=== PATIENT | male | born 1955 | race African-American/Black ===

== ENCOUNTER 2017-07-03 13:25 | Emergency (ER) | payer MEDICARE, OTHER ==
--- NOTE | 2017-07-03 14:14 | ED Physician Documentation ---
General Adult - HISTORIAN Historian: patient, other (Bridger ) - HPI Stated Complaint: BLE neuropathy pain Chief Complaint: Low Back Pain/ Injury Onset: other (years with neuropathy htn ) Timing: other (he has not had his meds since incarceration ) Severity: other (worse pain without meds ) Modifying Factors: none Context: none Quality: burning and painful Location: lower legs - left worse Further Comments: yes Last known Well Date: 06/24/17 Last Known Well Time: 09:00 Last known Well Code/Unknown Code: Unknown - ROS CONST: no problems EYES/ENT: none GI/: none MS/SKIN/LYMPH: none NEURO/PSYCH: denies: headache, fainting, dizziness - PAST HX Past History: other (htn, CHF, neuropathy ) Surgeries/Procedures: other (RTK, olivia, back and neck surgery, bilateral shoulder surgery ) Immunizations: referred to PCP - SOCIAL HX Smoking History: cigarettes Alcohol Use: none Drug Use: none - FAMILY HX Family History: Yes - VITAL SIGNS Vital Signs: Vital Signs Temp Pulse Resp BP Pulse Ox 98.2 F 95 H 26 H 169/71 100 07/03/17 13:38 07/03/17 13:38 07/03/17 13:38 07/03/17 13:38 07/03/17 13:38 - REVIEWED ASSESSMENTS Nursing Assessment Reviewed: Yes Vitals Reviewed: Yes <Tiffany Handy - Last Filed: 07/03/17 14:20> - VITAL SIGNS Vital Signs: Vital Signs Temp Pulse Resp BP Pulse Ox 98.2 F 72 22 153/59 98 07/03/17 14:24 07/03/17 14:24 07/03/17 14:24 07/03/17 14:24 07/03/17 14:24 <Lamine Christopher - Last Filed: 07/03/17 15:18> - PAST HX Allergies/Adverse Reactions: Allergies Allergy/AdvReac Type Severity Reaction Status Date / Time No Known Drug Allergies Allergy Verified 07/03/17 14:00 Home Medications: Ambulatory Orders Medication Instructions Recorded QUEtiapine FUMARATE [Seroquel] 100 mg PO HS u2 06/29/13 Tamsulosin HCl [Flomax] 0.4 mg PO DAILY av 06/29/13 Testosterone Cypionate 200 mg IM q 2 weeks 06/29/13 Amitriptyline HCl 50 mg PO HS #4 tablet 07/03/17 Amitriptyline HCl [Amitriptyline 50 mg PO HS 07/03/17 HCl] Baclofen [Baclofen] 20 mg PO QID 07/03/17 Cyclobenzaprine HCl 5 mg PO BID 07/03/17 [Cyclobenzaprine HCl] Diclofenac Sodium [Diclofenac 25 mg PO BID 07/03/17 Sodium] Diltiazem HCl [Cardizem LA] 180 mg PO DAILY 07/03/17 Diltiazem HCl [Diltiazem 24Hr Cd] 180 mg PO D #4 cap.er.24h 07/03/17 Duloxetine HCl [Duloxetine HCl] 60 mg PO DAILY 07/03/17 Finasteride [Proscar] 5 mg PO DAILY 07/03/17 Furosemide [Furosemide] 20 mg PO DAILY 07/03/17 Gabapentin [Neurontin] 800 mg PO DAILY 07/03/17 Gabapentin [Neurontin] 800 mg PO TID #12 tablet 07/03/17 Lisinopril [Lisinopril] 10 mg PO BID 07/03/17 Lisinopril [Zestril] 10 mg PO BID #8 tablet 07/03/17 Potassium Chloride [Klor-Con 10] 10 meq PO DAILY 07/03/17 Progress - Progress Progress: Patient seen and reviewed with EXERCISE MANAGER and I agree with assessmnt and plan as outlined. Carter Christopher MD <Lamine Christopher - Last Filed: 07/03/17 15:18> General Adult Physical Exam - PHYSICAL EXAM GENERAL APPEARANCE: mild distress NECK: normal inspection RESPIRATORY: no resp distress, chest non-tender, breath sounds normal CVS: reg rate & rhythm, heart sounds normal. No: no murmur ABDOMEN: soft, normal bowel sounds BACK: normal inspection SKIN: warm/dry, normal color EXTREMITIES: other (pain with palpation on left lower leg - pulses + cap refill + no edema FROM ) NEURO: oriented X3, CN's nml as tested, motor nml <Tiffany Handy - Last Filed: 07/03/17 14:20> Discharge Decision to Admit: NO Date of Decison to Admit: 07/03/17 Decision Time: 14:14 <Tiffany Handy - Last Filed: 07/03/17 14:20> <Lamine Christopher - Last Filed: 07/03/17 15:18> Clincal Impression: Neuropathic arthropathy Prescriptions: Amitriptyline HCl 50 mg PO HS #4 tablet Diltiazem HCl [Diltiazem 24Hr Cd] 180 mg PO D #4 cap.er.24h Gabapentin [Neurontin] 800 mg PO TID #12 tablet Lisinopril [Zestril] 10 mg PO BID #8 tablet Referrals: Alice Arias MD [Primary Care Provider] - 2 Days Condition: Stable Disposition: 01 HOME, SELF-CARE
[2017-07-03 14:25] VITALS: BP 153/59
== END 2017-07-03 14:24 | disposition home or self-care (01) ==
LOC: ED 13:25
DX: M14.68 Charcot's joint, vertebrae (principal)
CPT/HCPCS: 99283